=== PATIENT | female | born 1985 | race African-American/Black ===

== ENCOUNTER 2017-10-18 03:14 | Emergency (ER) | payer OTHER ==
[~2017-10-18] VITALS: Ht 160 cm; Wt 125.0 kg
[~2017-10-18 03:14] MED LIST: AMLO5 PO; AMLO5TAB2 PO; IBUP-232 PO; LISI40TA PO; NORC5TAB PO
[2017-10-18 03:18] VITALS: BP 205/112; PULSE 113; RESP 20; TEMP 98.5; O2SAT 100
--- NOTE | 2017-10-18 03:58 | PD ---
HPI Chief Complaint: Pain: Acute or Chronic Time Seen by Provider: 03:52 Travel History International Travel<30 days: No Contact w/Intl Traveler<30days: No Traveled to known affect area: No History of Present Illness HPI Patient is a 32-year-old female presents emergency department with left shoulder left elbow pain left wrist pain left hip pain and left knee pain. Patient states it woke her up from a sound sleep. She was able to drive herself up here. She states his pain is been having to her on and off in her primary care physician is trying to workup as an outpatient. She denies any numbness and tingling, denies any chest pain abdominal pain shortness of breath headaches neck injury back injury or extremity injury. States the pain is severe, has not tried anything prior to arrival. [facility] Past Medical History Cardiovascular Problems: Yes (HTN) Cerebrovascular Accident: Yes (TIA 2013) Diminished Hearing: No Hypertension: Yes ?: Not Past Surgical History Abdominal Surgery: Yes (hernia sx x3) Cholecystectomy: Yes Social History Alcohol Use: No Tobacco Use: No Substance Use: No Allergies-Medications (Allergen,Severity, Reaction): Coded Allergies: No Known Allergies (Verified Allergy, Unknown, 10/18/17) Reported Meds & Prescriptions Reported Meds & Active Scripts Active Amlodipine (Amlodipine Besylate) 5 Mg Tab 5 Mg PO DAILY Lisinopril 40 Mg Tab 40 Mg PO DAILY Review of Systems Except as stated in HPI: all other systems reviewed are Neg Physical Exam Narrative GENERAL: Well-nourished, well-developed patient. SKIN: Focused skin assessment warm/dry. HEAD: Normocephalic. EYES: No scleral icterus. No injection or drainage. NECK: Supple, trachea midline. No JVD or lymphadenopathy. CARDIOVASCULAR: Regular rate and rhythm without murmurs, gallops, or rubs. RESPIRATORY: Breath sounds equal bilaterally. No accessory muscle use. GASTROINTESTINAL: Abdomen soft, non-tender, nondistended. MUSCULOSKELETAL: No cyanosis, or edema. Patient has pain out of proportion to physical exam findings in the left shoulder left elbow left wrist. There is no swelling, there is good strength in all the extremities, she is able to range all of these joints to their motions. BACK: Nontender without obvious deformity. No CVA tenderness. Data Data Last Documented VS Vital Signs Date Time Temp Pulse Resp B/P (MAP) Pulse Ox O2 Delivery O2 Flow Rate FiO2 10/18/17 05:29 10/18/17 03:18 98.5 113 20 100 Room Air Orders Orders Ketorolac Inj (Toradol Inj) (10/18/17 04:00) Ketorolac Inj (Toradol Inj) (10/18/17 04:00) Ed Discharge Order (10/18/17 05:05) MDM Medical Decision Making Medical Screen Exam Complete: Yes Emergency Medical Condition: Yes Differential Diagnosis Polyarthralgia, rheumatic disease, fracture highly unlikely, Narrative Course Patient roomed in emergency department, no bony tenderness, polyarthritis is observed, at this time my impression is that rheumatic disease needs exclusion became be done on an outpatient basis. Is no indication for emergent lab work or imaging at this time. She is stable for discharge. She was given Toradol and on revisit stated that she was still having pain but did have to be awoken to get this history. Diagnosis Primary Impression: Polyarthralgia Additional Instructions: Call your physician today for further evaluation. Disposition: 01 DISCHARGE HOME Condition: Stable Jacobo Mcdonald MD Oct 18, 2017 03:58
[2017-10-18] MEDS ORDERED: KETOROLAC TROMETHAMINE 60 MG/2 ML (IM) VIAL IM ONE ×2 (04:00)
== END 2017-10-18 05:53 | disposition home or self-care (01) ==
LOC: NEPE 03:14 → MERGE 03:14 → NEPE 05:53
DX: M25.50 Pain in unspecified joint (principal); I10 Essential (primary) hypertension
CPT/HCPCS: 96372; 99284; J1885

== ENCOUNTER 2018-01-18 11:39 | Emergency (ER) | payer OTHER, MEDICAID ==
[~2018-01-18] VITALS: Ht 160 cm; Wt 120.0 kg
[2018-01-18 11:43] VITALS: BP 155/100; PULSE 96; RESP 18; TEMP 97.9; O2SAT 99
[2018-01-18] MEDS ORDERED: PRED20 PO (15:29)
[2018-01-18] MEDS ORDERED: CHLO25TA2 PO (15:29)
[2018-01-18] MEDS ORDERED: AMLO10TA2 PO (15:29)
[2018-01-18] MEDS ORDERED: FOLI1TAB6 PO (15:29)
[2018-01-18] MEDS ORDERED: FOLI-31 PO (15:29)
[2018-01-18] MEDS ORDERED: NABU1TAB37 PO (15:34)
[2018-01-18] MEDS ORDERED: CYCL10TA PO (15:34)
--- NOTE | 2018-01-18 15:34 | PD ---
HPI . Groin pain Chief Complaint: Pain: Acute or Chronic Time Seen by Provider: 14:19 Travel History International Travel<30 days: No Contact w/Intl Traveler<30days: No Traveled to known affect area: No History of Present Illness HPI Patient presents with chief complaint of right groin pain. It is atraumatic. Onset was 3 days ago. Pain is exacerbated by movement. It is unrelieved by Tylenol and ibuprofen. She rates the severity of her pain at 10/10. PFSH Past Medical History Anxiety: Yes Cancer: No Cardiovascular Problems: Yes (HTN) Cerebrovascular Accident: Yes (TIA 2014) Diabetes: No Diminished Hearing: No Endocrine: No Gastrointestinal Disorders: Yes (MILD GERD) GERD: Yes (MILD) Genitourinary: No Hepatitis: No Hiatal Hernia: No Hypertension: Yes Immune Disorder: No Medical other: No Musculoskeletal: Yes (CHRONIC BACK PAIN) Neurologic: No Psychiatric: Yes Reproductive: No Respiratory: No Immunizations Current: Yes Thyroid Disease: No Tetanus Vaccination: Unknown Influenza Vaccination: No ?: Not : 2 Para: 2 Past Surgical History Abdominal Surgery: Yes (hernia sx x3) Body Medical Devices: NONE Cholecystectomy: Yes Oral Surgery: Yes (WISDOM TEETH) Pacemaker: No Other Surgery: Yes Social History Alcohol Use: No Tobacco Use: No Substance Use: No Allergies-Medications (Allergen,Severity, Reaction): Coded Allergies: No Known Allergies (Unverified Adverse Reaction, Unknown, 01/18/18) Reported Meds & Prescriptions Reported Meds & Active Scripts Active Lisinopril 40 Mg Tab 40 Mg PO DAILY Reported Prednisone 20 Mg Tab 20 Mg PO DAILY Chlorthalidone 25 Mg Tab 25 Mg PO DAILY Folic Acid 1 Mg Tablet 1 Tab PO DAILY Foltabs (Folic Acid-B12-B6) 0.8-115-10 Mg Tab 1 Tab PO DAILY Amlodipine (Amlodipine Besylate) 10 Mg Tab 10 Mg PO DAILY Review of Systems Except as stated in HPI: all other systems reviewed are Neg Musculoskeletal: Positive: Myalgias, Limited ROM Physical Exam Narrative GENERAL: Awake and alert and in no acute distress. SKIN: Warm and dry. HEAD: Normocephalic/atraumatic. EYES: Pupils are equal. Extraocular movements are intact. NECK: Normal range of motion. RESPIRATORY: Nonlabored respirations. MUSCULOSKELETAL: Tenderness of the right iliopsoas muscle with obvious pain with use of the muscle. No redness or warmth of the overlying skin. Distally neurovascularly intact. NEUROLOGICAL: Nonfocal. PSYCHIATRIC: Appropriate mood and affect. Data Data Last Documented VS Vital Signs Date Time Temp Pulse Resp B/P (MAP) Pulse Ox O2 Delivery O2 Flow Rate FiO2 01/18/18 11:43 97.9 96 18 155/100 (118) 99 MDM Medical Decision Making Medical Screen Exam Complete: Yes Emergency Medical Condition: Yes Differential Diagnosis My differential diagnosis of groin pain includes but is not limited to groin strain, lymphadenopathy, hernia, epididymitis, testicular torsion Narrative Course This patient presents with right groin pain. It is atraumatic. She clearly has pain involving the right iliopsoas muscle. She will be discharged to home with a prescription for Relafen and Flexeril and instructions to use ice and/or heat for symptomatic relief. Diagnosis Primary Impression: Right groin pain Patient Instructions: General Instructions, Groin Pain (ED) Med/Other Pt SpecificInfo: Prescription(s) given Scripts Cyclobenzaprine (Flexeril) 10 Mg Tab 10 MG PO TID for Muscle Spasm, #15 TAB 0 Refills Prov: Maureen Garay MD 01/18/18 Nabumetone (Nabumetone) 500 Mg Tab 500 MG PO BID for Pain-Inflammation, #60 TAB 0 Refills Prov: Maureen Garay MD 01/18/18 Disposition: 01 DISCHARGE HOME Condition: Stable Maureen Garay MD Jan 18, 2018 15:34
[2018-01-18 15:58] VITALS: BP 129/75
== END 2018-01-18 16:00 | disposition home or self-care (01) ==
LOC: NEPD 11:39
DX: R10.31 Right lower quadrant pain (principal); I10 Essential (primary) hypertension
CPT/HCPCS: 99283